=== PATIENT | female | born 1990 | race American Indian/Alaskan Native ===

== ENCOUNTER 2018-06-11 09:24 | Emergency (ER) | payer MEDICAID ==
[2018-06-11] MEDS ORDERED: NACL 0.9% 1000 ML 0 ML ONE (09:53)
[2018-06-11 10:04] VITALS: BP 135/94
[2018-06-11] MEDS ORDERED: D50W (25GM) Syringe IV ONE (10:28)
--- NOTE | 2018-06-11 11:39 | Emergency Department Report ---
ED Anxiety HPI - General Chief Complaint: Anxiety Stated Complaint: ANXIETY ATTACK Time Seen by Provider: 06/11/18 11:32 Source: patient, EMS Mode of arrival: Ambulatory - History of Present Illness Initial Comments: This is a 28-year-old female here point that she is having an anxiety attack and headache. She says she is very stressed out. She reports that had an appetite and she has a disabled child and her finances getting ready to go to [facility]. She is here to be evaluated MD Complaint: anxiety -: This morning Symptoms: other (decreased appetite, headache) Place: home Previous History of Same: No Severity: moderate Quality: constant Provoking factors: emotional stress Improves With: nothing Worsens With: thinking about event Associated symptoms: fever/chills, headaches, anorexia. denies: chest pain, shortness of breath, palpitations, diaphoresis, denies other symptoms, confusion , cough, malaise, nausea/vomiting, rash, seizure, syncope, weakness - Related Data Home Medications: Previous Rx's Medication Instructions Recorded Last Taken Type Ibuprofen [Motrin] 600 mg PO Q8H PRN #12 tablet 06/11/18 Unknown Rx hydrOXYzine PAMOATE [Vistaril] 25 mg PO Q8HR PRN #12 capsule 06/11/18 Unknown Rx Allergies/Adverse Reactions: Allergies Allergy/AdvReac Type Severity Reaction Status Date / Time No Known Allergies Allergy Unverified 06/11/18 10:04 ED Review of Systems ROS: Stated complaint: ANXIETY ATTACK Other details as noted in HPI Constitutional: denies: chills, fever Eyes: denies: eye pain, eye discharge, vision change ENT: denies: ear pain, throat pain, congestion Respiratory: denies: cough, shortness of breath, SOB with exertion, SOB at rest , stridor, wheezing Cardiovascular: denies: chest pain, palpitations, edema, syncope Endocrine: denies: excessive sweating, increased hunger, increased thirst, unexplained weight gain, unexplained weight loss Gastrointestinal: denies: abdominal pain, nausea, vomiting, diarrhea, constipation, hematemesis, hematochezia Genitourinary: denies: urgency, dysuria, frequency, hematuria, discharge, abnormal menses, dyspareunia Musculoskeletal: denies: back pain, joint swelling, arthralgia, myalgia Skin: denies: rash, lesions Neurological: headache. denies: weakness, numbness, paresthesias, confusion, abnormal gait, vertigo Psychiatric: anxiety. denies: depression, auditory hallucinations, visual hallucinations, homicidal thoughts, suicidal thoughts ED Past Medical Hx - Past Medical History Previous Medical History?: Yes Additional medical history: Skin allergies - Surgical History Past Surgical History?: No - Family History Family history: hypertension - Social History Smoking Status: Current Every Day Smoker Substance Use Type: Alcohol, Marijuana - Medications Home Medications: Home Medications Medication Instructions Recorded Confirmed Last Taken Type Ibuprofen [Motrin] 600 mg PO Q8H PRN #12 tablet 06/11/18 Unknown Rx hydrOXYzine PAMOATE [Vistaril] 25 mg PO Q8HR PRN #12 capsule 06/11/18 Unknown Rx ED Physical Exam - General Limitations: No Limitations General appearance: alert, in no apparent distress - Head Head exam: Present: atraumatic, normocephalic, normal inspection - Eye Eye exam: Present: normal appearance, PERRL, EOMI Pupils: Present: normal accommodation - ENT ENT exam: Present: normal exam, normal orophraynx, mucous membranes moist, TM's normal bilaterally, normal external ear exam - Neck Neck exam: Present: normal inspection, full ROM, other (no C-spine tenderness). Absent: tenderness, lymphadenopathy - Respiratory Respiratory exam: Present: normal lung sounds bilaterally. Absent: respiratory distress, chest wall tenderness - Cardiovascular Cardiovascular Exam: Present: regular rate, normal rhythm, normal heart sounds. Absent: systolic murmur, diastolic murmur - GI/Abdominal GI/Abdominal exam: Present: soft, normal bowel sounds. Absent: distended, tenderness, guarding, rebound, rigid - Extremities Exam Extremities exam: Present: normal inspection, full ROM, normal capillary refill , other (no clubbing,cyanosis or edema. Distal pulses all extremities and no neurovascular compromise). Absent: tenderness, pedal edema, joint swelling, calf tenderness - Back Exam Back exam: Present: normal inspection, full ROM, other (ambulates without any difficulties). Absent: tenderness, CVA tenderness (R), CVA tenderness (L), muscle spasm, paraspinal tenderness, vertebral tenderness, rash noted - Neurological Exam Neurological exam: Present: alert, oriented X3, normal gait, reflexes normal, other (no focal neurological deficit). Absent: motor sensory deficit - Psychiatric Psychiatric exam: Present: normal affect, normal mood - Skin Skin exam: Present: warm, dry, intact, normal color. Absent: rash ED Course Vital Signs 06/11/18 10:00 Temperature 97.8 F Pulse Rate 62 Respiratory 18 Rate Blood Pressure 135/94 O2 Sat by Pulse 100 Oximetry - Reevaluation(s) Reevaluation #1: 06/11/18 11:50 Patient given Motrin 800 mg by mouth for headache with resolution of headache. She is able to tolerate oral liquids in emergency room without any difficulties ED Medical Decision Making - Medical Decision Making ED course: 28-year-old patient here for anxiety due to stress. She also reports that she smokes marijuana. Denies any nausea or vomiting, chest pain or shortness of breath. Headache is on a now 7 out of 10 and achy that is generalized. She said this is something that she gets when she is stressed out. She is here to be examined Patient seen and examined by myself and found to have mild anxiety related to stress at home. I gave her Motrin for headache which resolved her headache. Patient does have access to medical care but she said she would like to be referred to a primary care physician. She does have [employer] that she goes to. I discussed with her diagnosis and treatment plan and she was understanding and she is in agreement. A/P 1: Anxiety related to stress- better since waiting in ED. Will d/c home on vistaril 2: Episodic Headache- Better with Motrin. Will D/C home on Motrin 3: Cannabis Use- encourage to stop Educated on negative effects of marijuana on the body, medication, diagnosis and treatment plan and she was understanding Patient discharged home in stable condition with prescription for Motrin and Vistaril and to follow-up with primary care physician Dr. Hensley which I gave her information and also given information and [facility] as an alternative. Her vital signs are stable and she is afebrile and says she is feeling better. She is nontoxic in appearance. Patient was able to tolerate oral fluids in the emergency room without any difficulties. I discussed with her that if her symptoms recur to return to emergency room and she was understanding. Critical care attestation.: If time is entered above; I have spent that time in minutes in the direct care of this critically ill patient, excluding procedure time. ED Disposition Clinical Impression: Anxiety as acute reaction to exceptional stress, Marijuana smoker Headache Qualifiers: Headache type: unspecified Headache chronicity pattern: episodic headache Intractability: not intractable Qualified Code(s): R51 - Headache Disposition: DC-01 TO HOME OR SELFCARE Is pt being admited?: No Does the pt Need Aspirin: No Condition: Stable Instructions: Cannabis Abuse (ED), Anxiety (ED), Acute Headache (ED) Additional Instructions: Please stop smoking and Marijuana See discharge information on anxiety and cannabis abuse Please follow up with primary care physician as instructed Increased fluid intake Return to the emergency room CHASIDY if his symptoms recur. Please do not drive or operate heavy machinery while taking Vistaril as this medication causes drowsiness Prescriptions: hydrOXYzine PAMOATE [Vistaril] 25 mg PO Q8HR PRN #12 capsule PRN Reason: Anxiety Ibuprofen [Motrin] 600 mg PO Q8H PRN #12 tablet PRN Reason: Pain Referrals: ZAHRA HENSLEY MD [Staff Physician] - 06/13/18 [facility] [Outside] - 06/13/18
[2018-06-11] MEDS ORDERED: MOTRIN PO ONE (11:43)
== END 2018-06-11 12:10 | disposition home or self-care (01) ==
LOC: ED 09:24
DX: F41.1 Generalized anxiety disorder (principal); R51 Headache; F12.10 Cannabis abuse, uncomplicated; F17.200 Nicotine dependence, unspecified, uncomplicated
CPT/HCPCS: 99283; J7030